=== PATIENT | female | born 2000 | race Caucasian/White ===

== ENCOUNTER → 2021-12-04 15:02 | Outpatient (BNVA) | payer OTHER, MEDICAID, SELFPAY | PROVIDERS: Visit Provider Nurse Practitioner Family | DX: L50.9 Urticaria, unspecified (principal); O46.90 Antepartum hemorrhage, unspecified, unspecified trimester; Z3A.00 Weeks of gestation of pregnancy not specified | CPT/HCPCS: 84702; 86003; 86008 ==

== ENCOUNTER → 2021-12-09 11:27 | Outpatient (BNVA) | payer OTHER, SELFPAY | PROVIDERS: Visit Provider Nurse Practitioner Family | DX: L50.9 Urticaria, unspecified (principal); O46.90 Antepartum hemorrhage, unspecified, unspecified trimester; Z3A.00 Weeks of gestation of pregnancy not specified | CPT/HCPCS: 81025 ==

== ENCOUNTER → 2021-12-15 07:49 | Outpatient (BNVA) | payer OTHER, SELFPAY | PROVIDERS: Visit Provider Nurse Practitioner Family | DX: Z32.01 Encounter for pregnancy test, result positive (principal) | CPT/HCPCS: 84702 ==

== ENCOUNTER 2022-01-01 11:49 | Emergency (ER) | payer MEDICAID, SELFPAY ==
[2022-01-01 11:51] VITALS: PULSE 62; RESP 16; TEMP 36.8; O2SAT 100
--- NOTE | 2022-01-01 12:17 | W.ED.GENADLT ---
HPI - General Adult General: Chief complaint: Vaginal Bleeding Stated complaint: Bleeding-12 weeks preg Time Seen by Provider: 01/01/22 12:13 History of Present Illness: Patient is a 21-year-old female G1, P0 at 12 weeks by LMP presenting to the emergency room for concerns of vaginal bleeding pelvic cramps. Patient tells me that she has had been having pelvic cramps measurably since yesterday night. Patient denies any heavy bleeding or passage of clots but does report more bleeding than spotting. Patient reports cramps yesterday night. Patient is an irregular contraction or severe pelvic pain. Patient has any new vaginal discharge. Patient has no urinary complaints. Dysuria/polyuria/hematuria. Denies any flank pain or abdominal pain. Patient denies any nausea or vomiting. Patient has no cough, runny nose sore throat, chest pain or shortness breath. Patient is due to follow-up with her OB doctor in the next 2 weeks. Onset:yesterday night Duration:ongoing Location:home Severity:mild/moderate Associated symptoms: Deny chest pain, dyspnea, nausea, rash, palpitations or vomiting Review of Systems Const: Denies: fever(s) or chills Eyes: Denies: change in vision ENMT: Denies: mouth pain Card: Denies: chest pain or palpitations Resp: Denies: dyspnea or non-productive cough GI: Denies: abdominal pain, nausea, vomiting or diarrhea : Reports: other (+pelvic cramps and vaginal bleeding); Denies: dysuria Musc: Denies: extremity pain Skin/Breast: Denies: rash or new lesions Neuro: Denies: weakness in extremities Psych: Reports: other (Normal mood) Oziel/Lymph: Denies: easy bruising PFSH ED PFSH: Medical History Social History Smoking and tobacco status: current every day smoker cigarettes Quit status (tobacco): quit date established Alcohol intake: never Physical Exam Const: COMMON NORMALS: alert HENMT: COMMON NORMALS: atraumatic HEAD & SCALP: atraumatic MOUTH: moist mucous membranes not abnormal Eye: COMMON NORMALS: EOMs intact bilaterally and conjunctivae normal CONJUNCTIVA: Yes conjunctivae normal Neck/C-Spine: COMMON NORMALS: full ROM and supple Resp: COMMON NORMALS: normal respiratory effort and clear to auscultation bilaterally AUSCULTATION: clear to auscultation bilaterally Cardio: COMMON NORMALS: regular rate RATE: regular rate GI: COMMON NORMALS: Soft to palpation and non-tender PALPATION: Yes Soft to palpation OTHER: No focal TTP. NO guarding rebound, guarding, rigidity. No CVA tenderness to percussion. Neg [place]/Neg McBurney's point tenderness, no suprabupic tenderness to palpation. Extremity: COMMON NORMALS: full ROM Neuro: SENSORIUM/ORIENTATION: Yes alert MOTOR EXAM: No Abnormal motor strength present and Other motor observations present (no focal motor deficits) Psych: COMMON NORMALS: speech normal SPEECH: Yes normal speech MOOD & AFFECT: Yes euthymic mood Course Vital Signs: Vital signs: Vital Signs Temperature 98.3 F 01/01/22 11:51 Pulse Rate 49 L 01/01/22 13:58 Respiratory Rate 16 01/01/22 13:58 Blood Pressure 108/67 01/01/22 13:58 Pulse Oximetry 100 01/01/22 13:58 Oxygen Delivery Me thod 01/01/22 13:58 MDM - General Adult Medical Decision Making Patient is a 21-year-old female G1, P0 at 12 weeks by LMP presenting to the emergency room for concerns of vaginal bleeding pelvic cramps. Patient has a positive test . Patient's beta hCG is unremarkable today. Presented not show any . Patient has hemoglobin 12.1. Patient is given close follow-up primary care provider for repeat test. Disposition: Discharge. Patient counseled regarding diagnostic impression, treatment plan. Patient given ED strict return precautions to return for continuation, worsening, or development of new symptoms. Instructed to f/u w/ PCP regarding symptoms today. Patient verbalized understanding. Lab Data : 01/01/22 12:31 01/01/22 12:31 Radiology Impressions Pelvis Ultrasound 01/01/22 13:00 IMPRESSION: No viable intrauterine identified. Laboratory Results WBC 8.0 10^3/uL (4.5-13.0) 01/01/22 12:31 RBC 3.60 10^6/uL (4.1-5.3) L 01/01/22 12:31 Hgb 12.1 g/dL (11.5-15.3) 01/01/22 12: Hct 35.0 % (37.0-47.0) L 01/01/22 12: MCV 97.2 fl (81-99) 01/01/22 12: MCH 33.6 pg (28.0-34.0) 01/01/22 12: MCHC 34.6 g/dL (30.0-36.0) 01/01/22 12: RDW 11.8 % (12.1-15.1) L 01/01/22 12: Plt Count 244 10^3/cmm (130-400) 01/01/22 12: MPV 10.3 fL (7.4-10.4) 01/01/22 12: Neut % (Auto) 69.2 % 01/01/22 12: Lymph % (Auto) 24.4 % 01/01/22 12: [place] % (Auto) 4.8 % 01/01/22: Eos % (Auto) 1.3 % 01/01/22 12: Baso % (Auto) 0.0 % 01/01/22 12: Neut # (Auto) 5.53 10^3/uL (1.8-8.0) 01/01/22 12: Lymph # (Auto) 2.0 10^3/uL (1.5-6.5) 01/01/22 12: [place] # (Auto) 0.4 10^3/uL (0.2-0.9) 01/01/22 12: Eos # (Auto) 0.1 10^3/uL (0.0-0.8) 01/01/22 12: Baso # (Auto) 0.0 10^3/uL (0.0-0.1) 01/01/22 12: Nucleated RBC % (auto) 0 % 01/01/22: Nucleated RBCs # 0.0 /100WBC 01/01/22 12: Sodium 137 mmol/L (136-145) 01/01/22 12: Potassium 3.7 mmol/L (3.5-5.1) 01/01/22 12: Chloride 101 mmol/L (98-107) 01/01/22 12:31 Carbon Dioxide 27 mmol/L (22-29) 01/01/22 12:31 Anion Gap 12.7 (5-19) 01/01/22 12:31 BUN 8 mg/dL (6-20) 01/01/22 12:31 Creatinine 0.6 mg/dL (0.5-0.9) 01/01/22 12:31 GFR Calculation 127.5 mL/min (90-130) 01/01/22 12: Glucose 96 mg/dL (65-115) 01/01/22 12:31 Calculated Osmolality 282 mOsm/kg (285-295) L 01/01/22 12:31 Calcium 8.8 mg/dL (8.5-10.5) 01/01/22 12: Total Bilirubin 1.3 mg/dL (0.15-1.2) H 01/01/22 12:31 AST 14 U/L (0-32) 01/01/22 12: ALT 16 U/L (0-33) 01/01/22 12:31 Alkaline Phosphatase 65 U/L (35-105) 01/01/22 12:31 Total Protein 6.6 g/dL (6.6-8.7) 01/01/22 12:31 Albumin 4.1 g/dL (3.5-5.2) 01/01/22 12:31 Globulin 2.5 g/dL (1.3-4.6) 01/01/22 12:31 Lipase 26 U/L (13-60) 01/01/22 12:31 Ser , Semi-Qnt 0.50 mIU/mL 01/01/22 12:31 Urine Color Dark yellow (Yellow) 01/01/22 12:00 Urine Appearance Hazy (CLEAR) A 01/01/22 12:00 Urine pH 8 (5-7) H 01/01/22 12:00 Ur Specific [place] 1.010 (1.005-1.030) 01/01/22 12:00 Urine Protein Neg (Negative) 01/01/22 12:00 Urine Glucose (UA) Norm (Normal) 01/01/22 12:00 Urine Ketones Negative (Negative) 01/01/22 12:00 Urine Blood 3+ (Negative) H 01/01/22 12:00 Urine Nitrate Negative (Negative) 01/01/22 12:00 Urine Bilirubin Neg (Negative) 01/01/22 12:00 Prot Sulfosalicylic Acd Negative (Negative) 01/01/22 12:00 Urine Urobilinogen Norm mg/dL (Negative) 01/01/22 12:00 Ur Leukocyte Esterase Negative (Negative) 01/01/22 12:00 Urine RBC Too numerous to cnt /hpf (0-2) H 01/01/22 12:00 Urine WBC 0-4 /hpf (0-5) H 01/01/22 12:00 Ur Squamous Epith Cells 25-40 /hpf (0-5) H 01/01/22 12:00 Amorphous Sediment Not Reportable 01/01/22 12:00 Urine Bacteria 3+ /hpf (NONE) H 01/01/22 12:00 Blood Type B Positive 01/01/22 12:31 Rho(D) Type Positive 01/01/22 12:31 Imaging Data Other Imaging: Radiologist's impression: [address] [address] Ultrasound Report Signed Patient: Coty Palumbo Unit #: [id number] : 2000 Age/Sex: 21 / F ADM Date: 01/01/22 Loc: ER Room/Bed: Attending Dr: Ordering Provider/Ordering MD: Yu Padilla MD Date of Service: 01/01/22 Procedure(s): US pelvic complete* [id number] Accession Number(s): [id number] Report Number: [id number] WS: [id number] PELVIC ULTRASOUND REASON FOR VISIT: preg TECHNIQUE: Grayscale and Doppler transabdominal ultrasound of the pelvis. FINDINGS: Transabdominal ultrasound patient refused transvaginal ultrasound. No intrauterine identified. Normal ovaries. No fluid in the cul-de-sac. No pelvic mass. US/US pelvic complete* [id number] IMPRESSION: No viable intrauterine identified. ? ? ? Dictated By: Stevan Stephenson Jr, MD Signed By: Stevan Stephenson Jr, MD Signed Date/Time: 01/01/221424 DD/ 22 Discharge Plan Discharge Patient Disposition: Home Clinical Impression: UTI (urinary tract infection) Condition: Stable Prescriptions: New acetaminophen 500 mg tablet 500 mg PO Q6H PRN (Reason: pain) 5 Days Qty: 20 0RF cephalexin 250 mg capsule 250 mg PO BID 7 Days Qty: 14 0RF No Action glycopyrrolate 2 mg tablet 2 mg PO BID sertraline 25 mg tablet 50 mg PO DAILY Discharge Orders: Discharge ED (Routine); Ordered 01/01/22 Ordered By: Yu Padilla Discharge Diet: Advance as tolerated Discharge Activity: Increase activity as tolerated Patient Instructions: Urinary Tract Infection in Women (ED) Activity Restrictions/Additional Instructions: Please repeat your test in the next few days. Your test is negative today. Coding Level of Care Code ED Family Resource Coordinator for Jolanta Fwd Exam Comprehensive
[2022-01-01 12:19] VITALS: BP 124/55; PULSE 53; RESP 16; O2SAT 100
[2022-01-01 12:41] LABS: Add Urine Microscopic? YES; Bilirubin Urine Neg (Negative); Blood Urine 3+ (Negative); Glucose Urine UA Norm (Normal); Ketones Urine Negative (Negative); Leukocyte Esterase Urine Negative (Negative); Nitrate Urine Negative (Negative); Protein Urine Neg (Negative); RBC Urine TOO NUMEROUS TO CNT /hpf (0-2); Squamous Epithelial Cell Urine 25-40 /hpf (0-5); Sulfosalicylic Acid Urine Negative (Negative); Urine Appearance Hazy (CLEAR); Urine Color Dark Yellow (Yellow); Urobilinogen Urine Norm (Negative); WBC Urine 0-4 /hpf (0-5); pH Urine 8 (5-7)
[2022-01-01 12:41] LABS: Eosinophils # 0.1 10^3/uL (0.0-0.8); Eosinophils % 1.3 %; Hemoglobin 12.1 g/dL (11.5-15.3); Lymphocytes % 24.4 %; Mean Corpuscular HGB Conc 34.6 g/dL (30.0-36.0); Mean Corpuscular Hemoglobin 33.6 pg (28.0-34.0); Mean Corpuscular Volume 97.2 fl (81-99); Mean Platelet Volume 10.3 fL (7.4-10.4); Monocytes # 0.4 10^3/uL (0.2-0.9); Monocytes % 4.8 %; Neutrophils # 5.53 10^3/uL (1.8-8.0); Neutrophils % 69.2 %; Nucleated Red Blood Cells % 0 %; Platelet Count 244 10^3/cmm (130-400); Red Cell Distribution Width 11.8 % (12.1-15.1)
[2022-01-01 12:42] LABS: Add Urine Culture? No; Bacteria Urine 3+ /hpf
--- NOTE | 2022-01-01 13:00 | US_ITS ---
WS: [id number] PELVIC ULTRASOUND REASON FOR VISIT: preg TECHNIQUE: Grayscale and Doppler transabdominal ultrasound of the pelvis. FINDINGS: Transabdominal ultrasound patient refused transvaginal ultrasound. No intrauterine identified. Normal ovaries. No fluid in the cul-de-sac. No pelvic mass. US/US pelvic complete* [id number] IMPRESSION: No viable intrauterine identified.
[2022-01-01 13:20] LABS: Alanine Aminotransferase 16 U/L (0-33); Albumin Level 4.1 g/dL (3.5-5.2); Alkaline Phosphatase 65 U/L (35-105); Anion Gap 12.7 (5-19); Aspartate Amino Transferase 14 U/L (0-32); Blood Urea Nitrogen 8 mg/dL (6-20); Calcium 8.8 mg/dL (8.5-10.5); Carbon Dioxide 27 mmol/L (22-29); Chloride 101 mmol/L (98-107); Globulin 2.5 g/dL (1.3-4.6); Glomerular Filtration Rate 127.5 mL/min (90-130); Glucose 96 mg/dL (65-115); Lipase 26 U/L (13-60); Osmolality Calculated 282 mOsm/kg (285-295); Potassium 3.7 mmol/L (3.5-5.1); Sodium 137 mmol/L (136-145); Total Bilirubin 1.3 mg/dL (0.15-1.2); Total Protein 6.6 g/dL (6.6-8.7)
[2022-01-01 13:58] VITALS: BP 108/67; PULSE 49; RESP 16; O2SAT 100
--- NOTE | 2022-01-01 14:07 | PC.NURSE ---
This RN at bedside to discharge patient. It appears patient removed monitoring equipment got dressed and left. Therefore, patient did not receive prescriptions or follow up paperwork. ERP notified.
--- NOTE | 2022-01-04 10:57 | DCPLANNER ---
Addendum entered by Mari Ames 03/29/22 15:33: Patient had a follow up appointment scheduled with [facility] - patient did not attend appointment. Addendum entered by Mari Ames 01/05/22 07:52: Patient has a follow up appointment scheduled for Wednesday, January 26, 2022 at 3:[address] Perdomo at [facility]. Clinic will call patient with appointment information. Original Note: application development project manager had message to schedule a follow up appointment for patient with [facility]. application development project manager sent patients information to the front office staff at [facility]. Patients information will be printed and reviewed. Clinic will call patient with appointment information.
== END 2022-01-01 14:10 | disposition home or self-care (01) ==
PROVIDERS: Emergency Provider Emergency Medicine
DX: O23.41 Unspecified infection of urinary tract in pregnancy, first trimester (principal); N39.0 Urinary tract infection, site not specified; Z3A.12 12 weeks gestation of pregnancy
CPT/HCPCS: 76801; 76817; 76856; 80053; 81001; 83690; 84702; 85025; 86900; 99284

== ENCOUNTER 2022-08-17 10:12 | Emergency (ER) | payer MEDICAID, SELFPAY ==
[2022-08-17 10:25] VITALS: BP 125/64; PULSE 66; RESP 18; TEMP 36.6; O2SAT 96; BMI 20.5
--- NOTE | 2022-08-17 11:07 | W.ED.NAVMDI ---
HPI - Nausea/Vomiting/Diarrhea General: Chief complaint: Nausea/Vomiting/Diarrhea Stated complaint: n/v, 6-7 weeks Time Seen by Provider: 08/17/22 10:19 Source: patient Mode of arrival: ambulatory History of Present Illness: 22-year-old female at 6 7 weeks gestation by LMP presents emergency room persistent nausea vomiting last several days unable to tolerate any p.o. fluids denies any vaginal bleeding or discharge no pain or cramping in the pelvic region. No dysuria urgency or frequency. MD elicited complaint: nausea and vomiting Onset (ago): day(s) (2-3) Description of vomiting: watery and bilious Associated nausea: No Associated abdominal pain: Yes (Epigastric) Location of pain: Epigastric Pain consistency: intermittent Severity: moderate Quality: cramping Exacerbating factors: vomiting Relieving factors: none Associated symtoms: Denies altered mental status, anxiety, bloating, change in vision, chest pain, cough, diaphoresis, decreased urine output, dizziness, dysuria, epistaxis, fatigue, fecal incontinence, fevers/chills, headache(s), anorexia, malaise, myalgias, nausea, numbness, palpitations, rash, short of breath, syncope, tenesmus, tinnitus or weakness Review of Systems Const: Denies: fever(s), chills, fatigue, malaise or diaphoresis Eyes: Denies: change in vision ENMT: Denies: tinnitus or epistaxis Card: Denies: chest pain, palpitations or syncope Resp: Denies: dyspnea, productive cough, non-productive cough or wheezing GI: Reports: abdominal pain and vomiting; Denies: nausea, hematemesis, coffee ground emesis, bloating or fecal incontinence : Denies: dysuria, urinary frequency or urinary urgency Musc: Denies: neck pain or back pain Neuro: Denies: headache(s) or dizziness Psych: Denies: anxiety PFSH ED PFSH: Medical History Social History Smoking and tobacco status: current some day smoker cigarettes Quit status (tobacco): quit date established Alcohol intake: never Physical Exam Const: EXAM LIMITATIONS: no altered mental status GENERAL APPEARANCE: cooperative and comfortable ORIENTATION/CONSCIOUSNESS: Yes awake, Yes oriented to person, Yes oriented to place and Yes oriented to time HENMT: COMMON NORMALS: normocephalic, atraumatic and hearing grossly normal bilaterally HEAD & SCALP: normocephalic and atraumatic Resp: COMMON NORMALS: normal respiratory effort, No retractions, No use of accessory muscles and clear to auscultation bilaterally AUSCULTATION: clear to auscultation bilaterally Cardio: COMMON NORMALS: regular rate, regular rhythm and No murmurs present (Cardio) RATE: regular rate RHYTHM: regular rhythm GI: COMMON NORMALS: Soft to palpation and No hepatosplenomegaly present AUSCULTATION: Yes normoactive bowel sounds PALPATION: Yes Soft to palpation, No Tenderness to palpation present (GI), No Guarding due to palpation present (GI) and Yes No hepatosplenomegaly present Extremity: COMMON NORMALS: normal to inspection, capillary refill normal, no clubbing, cyanosis or edema, no calf tenderness and no pedal edema Neuro: SENSORIUM/ORIENTATION: Yes oriented to person, Yes oriented to place and Yes oriented to time Skin: COMMON NORMALS: no rashes or lesions noted GENERAL SKIN EXAM: no rashes or lesions noted Course Vital Signs: Vital signs: Vital Signs Temperature 97.8 F 08/17/22 10:25 Pulse Rate 60 08/17/22 14:00 Respiratory Rate 18 08/17/22 10:25 Blood Pressure 117/58 08/17/22 14:00 Pulse Oximetry 100 08/17/22 14:00 Oxygen Delivery Me thod Room Air 08/17/22 14:00 MDM - Nausea/Vomiting/Diarrhea Medical Decision Making Improved after fluids and antiemetics with Phenergan was particularly helpful for her. She is feeling much better we will discharge her home continue regular small doses of fluid repeat promethazine every 6-8 hours as needed follow-up with OB to establish for care. Case management will make arrangements for that follow-up. Return if has further problems. Medical Records I reviewed the patient's medical records. Lab Data I reviewed the patient's lab results. 08/17/22 11:35 08/17/22 11:35 Laboratory Results WBC 10.4 10^3/uL (4.0-10.0) H 08/17/22 11:35 RBC 3.94 10^6/uL (4.1-5.3) L 08/17/22 11:35 Hgb 13.1 g/dL (11.5-15.3) 08/17/22 11:35 Hct 35.8 % (37.0-47.0) L 08/17/22 11:35 MCV 90.9 fl (81-99) 08/17/22 11:35 MCH 33.2 pg (28.0-34.0) 08/17/22 11:35 MCHC 36.6 g/dL (30.0-36.0) H 08/17/22 11:35 RDW 11.5 % (12.1-15.1) L 08/17/22 11:35 Plt Count 343 10^3/cmm (130-400) 08/17/22 11:35 MPV 10.0 fL (7.4-10.4) 08/17/22 11:35 Neut % (Auto) 79.5 % 08/17/22 11:35 Lymph % (Auto) 15.6 % 08/17/22 11:35 [place] % (Auto) 4.2 % 08/17/22 11:35 Eos % (Auto) 0.1 % 08/17/22 11:35 Baso % (Auto) 0.2 % 08/17/22 11:35 Neut # (Auto) 8.23 10^3/uL (1.8-7.7) H 08/17/22 11:35 Lymph # (Auto) 1.6 10^3/uL (0.8-4.8) 08/17/22 11:35 [place] # (Auto) 0.4 10^3/uL (0.2-0.9) 08/17/22 11:35 Eos # (Auto) 0.0 10^3/uL (0.0-0.8) 08/17/22 11:35 Baso # (Auto) 0.0 10^3/uL (0.0-0.1) 08/17/22 11:35 Nucleated RBC % (auto) 0 % 08/17/22 11:35 Nucleated RBCs # 0.0 /100WBC 08/17/22 11:35 Sodium 135 mmol/L (136-145) L 08/17/22 11:35 Potassium 3.4 mmol/L (3.5-5.1) L 08/17/22 11:35 Chloride 97 mmol/L (98-107) L 08/17/22 11:35 Carbon Dioxide 19 mmol/L (22-29) L 08/17/22 11:35 Anion Gap 22.4 (5-19) H 08/17/22 11:35 BUN 10 mg/dL (6-20) 08/17/22 11:35 Creatinine 0.5 mg/dL (0.5-0.9) 08/17/22 11:35 GFR Calculation 155.7 mL/min (90-130) H 08/17/22 11:35 Glucose 94 mg/dL (65-115) 08/17/22 11:35 Calculated Osmolality 279 mOsm/kg (285-295) L 08/17/22 11:35 Calcium 9.3 mg/dL (8.5-10.5) 08/17/22 11:35 Magnesium 1.8 mg/dL (1.7-2.3) 08/17/22 11:35 Total Bilirubin 1.3 mg/dL (0.15-1.2) H 08/17/22 11:35 AST 15 U/L (0-32) 08/17/22 11:35 ALT 14 U/L (0-33) 08/17/22 11:35 Alkaline Phosphatase 62 U/L (35-105) 08/17/22 11:35 Total Protein 7.1 g/dL (6.6-8.7) 08/17/22 11:35 Albumin 4.3 g/dL (3.5-5.2) 08/17/22 11:35 Globulin 2.8 g/dL (1.3-4.6) 08/17/22 11:35 Ser , Semi-Qnt 92386.00 mIU/mL 08/17/22 11:35 Urine Color Yellow (Yellow) 08/17/22 12:12 Urine Appearance Hazy (CLEAR) A 08/17/22 12:12 Urine pH 5 (5-7) 08/17/22 12:12 Ur Specific [place] 1.025 (1.005-1.030) 08/17/22 12:12 Urine Protein Trace (Negative) 08/17/22 12:12 Urine Glucose (UA) Norm (Normal) 08/17/22 12:12 Urine Ketones 3+ (Negative) H 08/17/22 12:12 Urine Blood Neg (Negative) 08/17/22 12:12 Urine Nitrate Negative (Negative) 08/17/22 12:12 Urine Bilirubin Neg (Negative) 08/17/22 12:12 Urine Urobilinogen Norm mg/dL (Negative) 08/17/22 12:12 Ur Leukocyte Esterase Negative (Negative) 08/17/22 12:12 Urine RBC 0-4 /hpf (0-2) H 08/17/22 12:12 Urine WBC 0-4 /hpf (0-5) H 08/17/22 12:12 Ur Squamous Epith Cells 25-40 /hpf (0-5) H 08/17/22 12:12 Amorphous Sediment Not Reportable 08/17/22 12:12 Urine Bacteria 1+ /hpf (NONE) H 08/17/22 12:12 Urine Mucus 4+ /hpf 08/17/22 12:12 Discharge Plan Discharge Patient Disposition: Home Clinical Impression: Hyperemesis gravidarum Condition: Stable Prescriptions: New promethazine 25 mg tablet 25 mg PO Q6H PRN (Reason: nausea and vomiting) Qty: 20 0RF No Action venlafaxine 75 mg tablet 75 mg PO DAILY Qty: 30 11RF glycopyrrolate 2 mg tablet 2 mg PO QAM Discharge Orders: Discharge ED (Routine); Ordered 08/17/22 Ordered By: Antonio Andrews Referrals: [facility], [Primary Care Provider] - Discharge Diet: Usual diet Discharge Activity: Resume usual activity Patient Instructions: Opioid Safety, Pain Management Activity Restrictions/Additional Instructions: You are seen today for persistent nausea vomiting related to your . Improved with IV fluids and promethazine. Continue to drink small amounts of fluid regularly. Case management make arrangements for follow-up to establish with a primary care doctor for your obstetrical care. Return to the emergency room for further problems or any vaginal bleeding or discharge. Coding Level of Care Code ED Supervisor Enrobing for Jolanta Crawley
[2022-08-17] MEDS: sodium chloride 0.9% 1,000 ML 999 ML IV ×2 (11:40→12:33)
[2022-08-17] MEDS: ondansetron 2 mg/ML SDV 2 mL 8 MG IVP (11:41)
[2022-08-17 11:44] LABS: Basophils % 0.2 %; Eosinophils % 0.1 %; Hematocrit 35.8 % (37.0-47.0); Hemoglobin 13.1 g/dL (11.5-15.3); Lymphocytes # 1.6 10^3/uL (0.8-4.8); Lymphocytes % 15.6 %; Mean Corpuscular HGB Conc 36.6 g/dL (30.0-36.0); Mean Corpuscular Hemoglobin 33.2 pg (28.0-34.0); Mean Corpuscular Volume 90.9 fl (81-99); Monocytes # 0.4 10^3/uL (0.2-0.9); Monocytes % 4.2 %; Neutrophils # 8.23 10^3/uL (1.8-7.7); Neutrophils % 79.5 %; Nucleated Red Blood Cells % 0 %; Platelet Count 343 10^3/cmm (130-400); Red Blood Count 3.94 10^6/uL (4.1-5.3); Red Cell Distribution Width 11.5 % (12.1-15.1); White Blood Count 10.4 10^3/uL (4.0-10.0)
[2022-08-17 11:46] VITALS: BP 112/59; PULSE 64; O2SAT 100
[2022-08-17 12:00] VITALS: BP 122/58; PULSE 59; O2SAT 100
[2022-08-17 12:14] LABS: Alanine Aminotransferase 14 U/L (0-33); Albumin Level 4.3 g/dL (3.5-5.2); Alkaline Phosphatase 62 U/L (35-105); Anion Gap 22.4 (5-19); Aspartate Amino Transferase 15 U/L (0-32); Blood Urea Nitrogen 10 mg/dL (6-20); Calcium 9.3 mg/dL (8.5-10.5); Carbon Dioxide 19 mmol/L (22-29); Chloride 97 mmol/L (98-107); Globulin 2.8 g/dL (1.3-4.6); Glomerular Filtration Rate 155.7 mL/min (90-130); Glucose 94 mg/dL (65-115); Magnesium 1.8 mg/dL (1.7-2.3); Osmolality Calculated 279 mOsm/kg (285-295); Potassium 3.4 mmol/L (3.5-5.1); Sodium 135 mmol/L (136-145); Total Bilirubin 1.3 mg/dL (0.15-1.2); Total Protein 7.1 g/dL (6.6-8.7)
[2022-08-17] MEDS: promethazine 25 mg/mL SDV 1 mL IM (12:33)
[2022-08-17 12:39] LABS: Blood Urine Neg (Negative); Glucose Urine UA Norm (Normal); Ketones Urine 3+ (Negative); Protein Urine Trace (Negative); Specific Gravity, Urine 1.025 (1.005-1.030); Urine Appearance Hazy (CLEAR); Urine Color Yellow (Yellow); pH Urine 5 (5-7)
[2022-08-17 12:40] LABS: Bilirubin Urine Neg (Negative); Leukocyte Esterase Urine Negative (Negative); Nitrate Urine Negative (Negative); Urobilinogen Urine Norm (Negative)
[2022-08-17 12:42] LABS: Add Urine Microscopic? YES; Bacteria Urine 1+ /hpf; Mucus Urine 4+ /hpf; RBC Urine 0-4 /hpf (0-2); Squamous Epithelial Cell Urine 25-40 /hpf (0-5); WBC Urine 0-4 /hpf (0-5)
[2022-08-17 12:43] LABS: Add Urine Culture? No
[2022-08-17 13:00] VITALS: BP 101/54; PULSE 56; O2SAT 100
--- NOTE | 2022-08-17 13:11 | PC.PHAR ---
pt states she takes care of her own medications-pt states she stop taking her venlafaxine plain 75mg daily a week ago rx filled 07/20/22 30d/s pt states she is only taking her glycopyrrolate 2mg qam rx filled 07/20/22 30d/s for 2mg bid notes are made in the pharmacy comments
[2022-08-17 14:00] VITALS: BP 117/58; PULSE 60; O2SAT 100
--- NOTE | 2022-08-18 08:20 | DCPLANNER ---
Addendum entered by Mari Ames 09/13/22 11:19: Patient had a follow up appointment at [facility] - patient did attend appointment. Addendum entered by Mari Ames 08/24/22 11:51: Patient has a follow up appointment scheduled for Saturday, September 10, 2022 at 1:[address] Loza at [facility]. Original Note: player development manager had message to schedule a follow up appointment for patient with [facility]. player development manager sent patients information to the front office staff at [facility]. Patients information will be printed and reviewed. Clinic will call patient with appointment information.
== END 2022-08-17 15:00 | disposition home or self-care (01) ==
PROVIDERS: Emergency Medicine; Emergency Provider Family Medicine
DX: O21.0 Mild hyperemesis gravidarum (principal); Z3A.01 Less than 8 weeks gestation of pregnancy; O99.331 Smoking (tobacco) complicating pregnancy, first trimester; F17.210 Nicotine dependence, cigarettes, uncomplicated
CPT/HCPCS: 80053; 81001; 83735; 84702; 85025; 96372; 96374; 99284; J2405; J2550; J7030

== ENCOUNTER → 2022-09-10 12:59 | Outpatient (BNVA) | payer MEDICAID, SELFPAY | PROVIDERS: Visit Provider Obstetrics & Gynecology | DX: Z34.90 Encounter for supervision of normal pregnancy, unspecified, unspecified trimester (principal) | CPT/HCPCS: 84315; 87086; 87184 ==

== ENCOUNTER 2022-10-04 14:56 | Outpatient (CLI) | payer MEDICAID, SELFPAY ==
--- NOTE | 2022-10-04 15:00 | US_ITS ---
WS: [id number] EARLY OBSTETRICAL ULTRASOUND (<14 WEEKS). HISTORY: Z34.90 - Encounter for supervision of normal , u... COMPARISON: None available. Single intrauterine gestational sac is identified. Cardiac activity at 157 BPM. [place]-rump length karen sures 7.4 cm which corresponds to a gestation of 13w4d. Normal-appearing yolk sac and amnion demonstr ated. No subchorionic hemorrhage. No free fluid. Neither ovary is identified. US/US OB <= 14 weeks fetus [id number] IMPRESSION: 1. Single intrauterine gestation of 13 weeks 4 days with an EDC of 04/07/2023. 2. Normal cardiac activity.
== END 2022-10-04 14:57 | disposition home or self-care (01) ==
PROVIDERS: Visit Provider Obstetrics & Gynecology
DX: Z34.82 Encounter for supervision of other normal pregnancy, second trimester (principal)
CPT/HCPCS: 76801; 80307; 84315; 84443; 85027; 86592; 86762; 86803; 86850; 86900; 87086; 87340; 87491; 87591; 87624; 87661; 87806

== ENCOUNTER → 2022-10-18 09:37 | Outpatient (BNVA) | payer MEDICAID, SELFPAY | PROVIDERS: Visit Provider Obstetrics & Gynecology | DX: O99.320 Drug use complicating pregnancy, unspecified trimester (principal); Z3A.00 Weeks of gestation of pregnancy not specified; R82.90 Unspecified abnormal findings in urine | CPT/HCPCS: 80307; 84315; 87086 ==

== ENCOUNTER → 2022-11-22 14:30 | Outpatient (BNVA) | payer MEDICAID, SELFPAY | PROVIDERS: Visit Provider Obstetrics & Gynecology | DX: Z34.92 Encounter for supervision of normal pregnancy, unspecified, second trimester (principal); Z3A.21 21 weeks gestation of pregnancy | CPT/HCPCS: 76805 ==

== ENCOUNTER → 2022-12-01 15:27 | Outpatient (BNVA) | payer MEDICAID, SELFPAY | PROVIDERS: Visit Provider Obstetrics & Gynecology | DX: O99.320 Drug use complicating pregnancy, unspecified trimester (principal); Z3A.00 Weeks of gestation of pregnancy not specified | CPT/HCPCS: 80307; 84315 ==

== ENCOUNTER → 2023-01-17 14:14 | Outpatient (BNVA) | payer MEDICAID, SELFPAY | PROVIDERS: Visit Provider Obstetrics & Gynecology | DX: Z34.90 Encounter for supervision of normal pregnancy, unspecified, unspecified trimester (principal) | CPT/HCPCS: 82950; 84315; 85025 ==

== ENCOUNTER → 2023-02-07 11:17 | Outpatient (BNVA) | payer MEDICAID, SELFPAY | PROVIDERS: Visit Provider Obstetrics & Gynecology | DX: Z34.93 Encounter for supervision of normal pregnancy, unspecified, third trimester (principal); Z3A.31 31 weeks gestation of pregnancy | CPT/HCPCS: 76816; 84315; 87077; 87086; 87184 ==

== ENCOUNTER → 2023-02-21 15:12 | Outpatient (BNVA) | payer MEDICAID, SELFPAY | PROVIDERS: Visit Provider Obstetrics & Gynecology | DX: Z34.90 Encounter for supervision of normal pregnancy, unspecified, unspecified trimester (principal) | CPT/HCPCS: 80307; 84315 ==

== ENCOUNTER → 2023-03-07 11:02 | Outpatient (BNVA) | payer MEDICAID, SELFPAY | PROVIDERS: Visit Provider Nurse Practitioner Women's Health | DX: Z34.90 Encounter for supervision of normal pregnancy, unspecified, unspecified trimester (principal); Z3A.00 Weeks of gestation of pregnancy not specified | CPT/HCPCS: 76816; 80307; 84315; 87081 ==